=== PATIENT | male | born 1975 | race Caucasian/White ===

== ENCOUNTER 2020-01-26 00:44 | Emergency (ER) | payer MEDICARE ==
--- NOTE | 2020-01-26 01:33 | ERPHSYRPT ---
- History of Present Illness Time Seen by Provider: 01/26/20 01:05 Historian: patient Exam Limitations: no limitations Patient Subjective Stated Complaint: pt c/o sob and chest pain Triage Nursing Assessment: pt c/o sob upon arrival to ER, ambulated to ER room 6, O2 sats 99-100% on rm air, does not appear winded at all. Pt states, "I did have some chest pain off and on since yesterday". Pt denies any chest pain at this time but had some around 2100 to the center of sternum and upper epigastric region. Lungs clear, heart tones reg and tachy. Abd soft with active bs x4 quad, nontender. Physician History: This is a 45-year-old white male who has a history of coronary artery disease and history of TX in the past as well as a single cardiac stent who presents with sudden onset of mild substernal central dull ache that occurred on the morning of 01/25/2020 with associated mild rapid heart rate. There was no r adiation of pain. It is different than his prior myocardial infarction. It resolved on its own. Patient does have anxiety issues and was concerned and decided to come in to the emergency department this morning for evaluation. Patient's endodontic assistant is Dr. Almanza again, patient arrives to the emergency department without chest pain. Patient denies shortness of breath. He denies cough. He denies fever. He has no flulike symptoms. Timing/Duration: yesterday Quality: dullness Location: substernal, central Chest Pain Radiation: no radiation Severity of Pain-Max: mild Severity of Pain-Current: none Modifying Factors: Improves With: nothing Associated Symptoms: denies symptoms Prior Chest Pain/Cardiac Workup: heart attack Nitro Today/Relief: no nitro taken today Aspirin Treatment Today: 81 mg x 2 Allergies/Adverse Reactions: No Known Drug Allergies Allergy (Verified 01/26/20 01:02) Home Medications: Albuterol/Ipratropium cc [Combivent Inhaler COMMON CANISTER] 1 puff IH TID 01/26/20 [History] Aspirin 81 gm Chew [Baby Aspirin 81 mg Chew] 162 mg PO DAILY 01/26/20 [History] Empagliflozin [Jardiance] 10 mg PO DAILY 01/26/20 [History] Exenatide Microspheres [Bydureon Bcise] 2 mg SQ WEEKLY 01/26/20 [History] Ezetimibe 10 mg PO DAILY 01/26/20 [History] Fluticasone/Vilanterol [Breo Ellipta 200-25 Mcg INH] 1 puff IH DAILY 01/26/20 [History] Gabapentin 300 mg PO Q12H PRN PRN 01/26/20 [History] Metoprolol Tartrate 25 mg PO BID 01/26/20 [History] Rosuvastatin Calcium 10 mg PO HS 01/26/20 [History] Sacubitril/Valsartan [Entresto 24 mg-26 mg Tablet] 1 tab PO BID 01/26/20 [History] Hx Tetanus, Diphtheria Vaccination/Date Given: Yes Hx Influenza Vaccination/Date Given: No Hx Pneumococcal Vaccination/Date Given: No Immunizations Up to Date: Yes Travel Risk - International Travel Have you traveled outside of the country in past 3 weeks: No - Coronavirus Screening Symptoms: Shortness of Breath Close contact with a COVID-19 positive Pt in past 14-21 Days: No - Review of Systems Constitutional: No Symptoms Eyes: No Symptoms Ears, Nose, & Throat: No Symptoms Respiratory: No Symptoms Cardiac: Chest Pain Abdominal/Gastrointestinal: No Symptoms Genitourinary Symptoms: No Symptoms Musculoskeletal: No Symptoms Skin: No Symptoms Neurological: No Symptoms Psychological: No Symptoms Endocrine: No Symptoms Hematologic/Lymphatic: No Symptoms Immunological/Allergic: No Symptoms All Other Systems: Reviewed and Negative - Past Medical History Pertinent Past Medical History: No Neurological History: No Pertinent History ENT History: No Pertinent History Cardiac History: Angina, Congestive Heart Failure, Coronary Artery Disease, High Cholesterol, Hypertension, Myocardial Infarction (TX) Respiratory History: Emphysema Endocrine Medical History: Diabetes Type II Musculoskeletal History: No Pertinent History GI Medical History: GERD History: No Pertinent History Psycho-Social History: Anxiety, Depression Male Reproductive Disorders: No Pertinent History - Past Surgical History Past Surgical History: Yes Neuro Surgical History: No Pertinent History Cardiac: Cardiac Catheterization Respiratory: No Pertinent History Gastrointestinal: No Pertinent History Genitourinary: No Pertinent History Musculoskeletal: No Pertinent History Male Surgical History: No Pertinent History - Social History Smoking Status: Former smoker How long have you smoked: YRS Exposure to second hand smoke: Yes Drug Use: none Patient Lives Alone: Yes - Nursing Vital Signs Nursing Vital Signs: Initial Vital Signs Temperature 97.9 F 01/26/20 00:52 Pulse Rate 107 H 01/26/20 00:52 Respiratory Rate 20 01/26/20 00:52 Blood Pressure 169/105 01/26/20 00:52 O2 Sat by Pulse Oximetry 99 01/26/20 00:52 Pain Scale Pain Intensity 0 - Physical Exam General Appearance: no apparent distress, alert, anxiety Eye Exam: PERRL/EOMI, eyes nml inspection Ears, Nose, Throat Exam: normal ENT inspection, moist mucous membranes Neck Exam: normal inspection, non-tender, supple, full range of motion Respiratory Exam: normal breath sounds, lungs clear, airway intact, No chest tenderness, No respiratory distress Cardiovascular Exam: regular rate/rhythm, normal heart sounds, normal peripheral pulses Gastrointestinal/Abdomen Exam: soft, normal bowel sounds, No tenderness Rectal Exam: not done Back Exam: normal inspection, normal range of motion, No CVA tenderness, No vertebral tenderness Extremity Exam: normal inspection, normal range of motion, pelvis stable Neurologic Exam: alert, oriented x 3, cooperative, hoisting engineer pile driving II-XII nml as tested, normal mood/affect, nml cerebellar function, nml station & gait, sensation nml Skin Exam: normal color, warm, dry Lymphatic Exam: No adenopathy SpO2 Interpretation: normal SpO2: 99 O2 Delivery: Room Air - Course Nursing assessment & vital signs reviewed: Yes EKG Interpreted by Me: RATE ([id number]), Sinus Tach, NORMAL AXIS, NORMAL INTERVALS, NORMAL QRS, NORMAL ST-T, Other (There are no acute ischemic changes on today's EKG. When compared to EKG dated 08/30/2017 today there is mild sinus tachycardia. Otherwise EKG remains the same.) Ordered Tests: Active Orders 24 hr Category Date Time Status Police Commanding Officer STAT Care 01/26/20 02:31 Active EKG-ER Only STAT Care 01/26/20 02:30 Active IV Insertion STAT Care 01/26/20 02:30 Active CHEST 1 VIEW (PORTABLE) Stat Exams 01/26/20 02:31 Taken CBC W DIFF Stat Lab 01/26/20 01:10 Completed CMP Stat Lab 01/26/20 01:10 Completed D-DIMER QUANTITATIVE Stat Lab 01/26/20 01:10 Completed NT PRO BNP Stat Lab 01/26/20 01:10 Completed PROTIME WITH INR Stat Lab 01/26/20 01:10 Completed TROPONIN Q3H Lab 01/26/20 01:10 Completed TROPONIN Q3H Lab 01/26/20 03:35 Completed TROPONIN Q3H Lab 01/26/20 08:30 Ordered TROPONIN Q3H Lab 01/26/20 11:30 Ordered TROPONIN Q3H Lab 01/26/20 14:30 Ordered Transfer Order Routine Transfer 01/26/20 Ordered Medication Summary Discontinued Medications Generic Name Dose Route Start Last Admin Trade Name Freq PRN Reason Stop Dose Admin Aspirin 81 mg 01/26/20 02:24 01/26/20 02:27 Baby Aspirin 81 Mg Chew PO 01/26/20 02:25 81 mg STAT ONE Administration Aspirin 162 mg 01/26/20 02:30 01/26/20 02:34 Baby Aspirin 81 Mg Chew PO 01/26/20 02:31 Not Given STAT ONE Lab/Rad Data: Laboratory Result Diagrams 01/26/20 01:10 01/26/20 01:10 Laboratory Results 01/26/20 01/26/20 01/26/20 Range/Units 03:35 01:10 01:10 WBC (4.0-10.5) K/mm3 RBC (4.1-5.6) M/mm3 Hgb (12.5-18.0) gm/dl Hct (42-50) % MCV (78-100) fl MCH (26-32) pg MCHC (32-36) g/dl RDW (11.5-14.0) % Plt Count (150-450) K/mm3 MPV (7.5-11.0) fl Gran % (36.0-66.0) % Eos # (Auto) (0-0.5) Absolute Lymphs (auto) (1.0-4.6) Absolute Monos (auto) (0.0-1.3) Lymphocytes % (24.0-44.0) % Monocytes % (0.0-12.0) % Eosinophils % (0.00-5.0) % Basophils % (0.0-0.4) % Absolute Granulocytes (1.4-6.9) Basophils # (0-0.4) PT 10.9 (8.83-12.87) SECONDS INR 0.96 (0.8-3.0) D-Dimer 314 (215-500) ng/mL Sodium 138 (137-145) mmol/L Potassium 3.5 (3.5-5.1) mmol/L Chloride 102 (98-107) mmol/L Carbon Dioxide 26 (22-30) mmol/L Anion Gap 13.0 (5-15) MEQ/L BUN 14 (9-20) mg/dL Creatinine 0.69 (0.66-1.25) mg/dL Estimated GFR > 60.0 ML/MIN Glucose 114 H (74-106) mg/dL Calcium 9.7 (8.4-10.2) mg/dL Total Bilirubin 0.50 (0.2-1.3) mg/dL AST 23 (17-59) U/L ALT 25 (0-50) U/L Alkaline Phosphatase 92 (38-126) U/L Troponin I < 0.012 (0.000-0.034) ng/mL NT-Pro-B Natriuret Pep 35.1 (0-450) pg/mL Serum Total Protein 7.9 (6.3-8.2) g/dL Albumin 4.7 (3.5-5.0) g/dL 01/26/20 01/26/20 Range/Units 01:10 01:10 WBC 12.7 H (4.0-10.5) K/mm3 RBC 5.37 (4.1-5.6) M/mm3 Hgb 16.2 (12.5-18.0) gm/dl Hct 47.8 (42-50) % MCV 89.0 (78-100) fl MCH 30.2 (26-32) pg MCHC 33.9 (32-36) g/dl RDW 14.0 (11.5-14.0) % Plt Count 211 (150-450) K/mm3 MPV 10.4 (7.5-11.0) fl Gran % 73.6 H (36.0-66.0) % Eos # (Auto) 0.26 (0-0.5) Absolute Lymphs (auto) 2.21 (1.0-4.6) Absolute Monos (auto) 0.86 (0.0-1.3) Lymphocytes % 17.4 L (24.0-44.0) % Monocytes % 6.8 (0.0-12.0) % Eosinophils % 2.0 (0.00-5.0) % Basophils % 0.2 (0.0-0.4) % Absolute Granulocytes 9.35 H (1.4-6.9) Basophils # 0.03 (0-0.4) PT (8.83-12.87) SECONDS INR (0.8-3.0) D-Dimer (215-500) ng/mL Sodium (137-145) mmol/L Potassium (3.5-5.1) mmol/L Chloride (98-107) mmol/L Carbon Dioxide (22-30) mmol/L Anion Gap (5-15) MEQ/L BUN (9-20) mg/dL Creatinine (0.66-1.25) mg/dL Estimated GFR ML/MIN Glucose (74-106) mg/dL Calcium (8.4-10.2) mg/dL Total Bilirubin (0.2-1.3) mg/dL AST (17-59) U/L ALT (0-50) U/L Alkaline Phosphatase (38-126) U/L Troponin I < 0.012 (0.000-0.034) ng/mL NT-Pro-B Natriuret Pep (0-450) pg/mL Serum Total Protein (6.3-8.2) g/dL Albumin (3.5-5.0) g/dL - Progress Progress: improved Air Movement: good Progress Note: 01/26/20 04:17 Chest x-ray shows no acute cardiopulmonary process Blood Culture(s) Obtained: No Antibiotics given: No Counseled pt/family regarding: lab results, diagnosis, need for follow-up, rad results - Departure Departure Disposition: Home Clinical Impression: Chest pain, non-cardiac Condition: Stable Critical Care Time: No Referrals: OLLIE SANTIAGO [Primary Care Provider] - Additional Instructions: Take your medication as prescribed. Follow-up with your primary care doctor as well as endodontic assistant for further management.
[2020-01-26] MEDS ORDERED: BABY ASPIRIN 81 MG CHEW PO ONE ×2 (02:24→02:30)
[2020-01-26 02:49] LABS: INR 0.96 (0.8-3.0); PROTIME 10.9 SECONDS (8.83-12.87)
[2020-01-26 02:51] LABS: ALBUMIN 4.7 g/dL (3.5-5.0); ALKALINE PHOSPHATASE 92 U/L (38-126); BLOOD UREA NITROGEN 14 mg/dL (9-20); CHLORIDE 102 mmol/L (98-107); Calcium 9.7 mg/dL (8.4-10.2); Carbon Dioxide 26 mmol/L (22-30); Creatinine 1 0.69 mg/dL (0.66-1.25); EST GLOMERULAR FILTRATION RATE > 60.0 ML/MIN; Glucose 114 mg/dL (74-106); NT PRO BNP 35.1 pg/mL (0-450); Potassium 3.5 mmol/L (3.5-5.1); SGOT/AST 23 U/L (17-59); SGPT/ALT 25 U/L (0-50); SODIUM 138 mmol/L (137-145); Total Protein 7.9 g/dL (6.3-8.2)
[2020-01-26 03:24] LABS: Absolute Neutrophil Ct (ANC) 9.35 (1.4-6.9); BASOPHIL % 0.2 % (0.0-0.4); Basophil (Absolute #) 0.03 (0-0.4); Eosinophil (Absolute #) 0.26 (0-0.5); Hematocrit 47.8 % (42-50); Hemoglobin 16.2 gm/dl (12.5-18.0); Lymphocyte (Absolute #) 2.21 (1.0-4.6); Lymphocytes % 17.4 % (24.0-44.0); Mean Corpuscular Hemoglobin 30.2 pg (26-32); Mean Corpuscular Hgb Concent. 33.9 g/dl (32-36); Mean Platelet Volume 10.4 fl (7.5-11.0); Monocyte (Absolute #) 0.86 (0.0-1.3); Monocytes % 6.8 % (0.0-12.0); Neutrophil % 73.6 % (36.0-66.0); Platelet Count 211 K/mm3 (150-450); Red Blood Count 5.37 M/mm3 (4.1-5.6); White Blood Count 12.7 K/mm3 (4.0-10.5)
[2020-01-26 04:13] VITALS: BP 114/74; PULSE 95
[2020-01-26 04:18] VITALS: O2SAT 99
--- NOTE | 2020-01-26 08:55 | XRAY ---
Indication: Chest pain. Comparison: October 20, 2013. Portable chest remains clear. Heart within normal limits for AP portable technique. Bony thorax intact. Impression: Continued nonacute chest.
== END 2020-01-26 04:26 | disposition home or self-care (01) ==
LOC: ED 00:44
DX: R07.89 Other chest pain (principal); I50.9 Heart failure, unspecified; I25.10 Atherosclerotic heart disease of native coronary artery without angina pectoris; E78.00 Pure hypercholesterolemia, unspecified; K21.9 Gastro-esophageal reflux disease without esophagitis; I25.2 Old myocardial infarction; E11.9 Type 2 diabetes mellitus without complications; Z79.4 Long term (current) use of insulin; Z79.899 Other long term (current) drug therapy
CPT/HCPCS: 36000; 36415; 71045; 80053; 83880; 84484; 85025; 85379; 85610; 93005; 93041; 99284; A9270-GY